=== PATIENT | female | born 2000 | race Caucasian/White ===

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

== ENCOUNTER 2021-07-23 15:03 | Emergency (ER) | payer OTHER ==
[2021-07-23 15:12] VITALS: BMI 35.7
[2021-07-23] MEDS ORDERED: DEXTROSE 5%-LACTATED RINGERS 1,000 ML IV SCH (16:30)
[2021-07-23 16:57] VITALS: BP 112/64; PULSE 103; TEMP 98
[2021-07-23 17:41] LABS: COCAINE, UR NEGATIVE (NEGATIVE); PHENCYCLIDINE,URINE NEGATIVE (NEGATIVE); URINE BARBITURATES NEGATIVE (NEGATIVE)
[2021-07-23 17:42] LABS: METHADONE, UR NEGATIVE (NEGATIVE); OPIATES, URI NEGATIVE (NEGATIVE); URINE AMPHETAMINES NEGATIVE (NEGATIVE); URINE BENZODIAZEPINES NEGATIVE (NEGATIVE)
[2021-07-23 17:44] LABS: BASO % 0.2 % (0-2.0); EOS % 1.4 % (0-4.5); HEMATOCRIT 35.1 % (32.4-45.2); HEMOGLOBIN 11.5 GM/dL (10.7-15.3); MCH 30.9 pg (25.7-33.7); MCHC 32.9 g/dl (32.0-36.0); MEAN PLT VOLUME 9.1 fl (7.5-11.1); MONO % 10.9 % (3.8-10.2); NEUT % 72.5 % (42.8-82.8); PLATELET COUNT 216 10^3/uL (134-434); RBC 3.73 M/mm3 (3.60-5.2); RDW 15.5 % (11.6-15.6); WHITE BLOOD COUNT 5.4 K/mm3 (4.0-10.0)
[2021-07-23 18:26] LABS: BLOOD UREA NITROGEN 11.1 mg/dL (7-18); CALCIUM 8.5 mg/dL (8.5-10.1)
[2021-07-23 18:30] LABS: CREATININE 0.7 mg/dL (0.55-1.3)
[2021-07-23 18:31] LABS: BILIRUBIN,TOTAL 0.2 mg/dL (0.2-1); TOT PROT 6.4 g/dl (6.4-8.2)
[2021-07-23 18:34] LABS: PH,URINE 5.5 (5.0-8.0); URINE APPEARANCE CLOUDY; URINE BILIRUBIN NEGATIVE (NEGATIVE); URINE COLOR YELLOW; URINE GLUCOSE (UA) NEGATIVE (NEGATIVE); URINE KETONE TRACE (NEGATIVE); URINE LEUK ESTERASE NEGATIVE (NEGATIVE); URINE NITRITE NEGATIVE (NEGATIVE); URINE PROTEIN TRACE (NEGATIVE); URINE UROBILINOGEN 0.2 mg/dL (0.2-1.0)
== END 2021-07-23 19:40 | disposition home or self-care (01) ==
LOC: JER 15:03
DX: O21.9 Vomiting of pregnancy, unspecified (principal); O99.612 Diseases of the digestive system complicating pregnancy, second trimester; E66.9 Obesity, unspecified; Z3A.21 21 weeks gestation of pregnancy
CPT/HCPCS: 36415; 76801-TC; 80053; 80307; 81003; 85025; 99284-25; C9803; U0003; U0005

== ENCOUNTER 2021-11-28 07:08 | Inpatient (IN) | payer OTHER ==
[2021-11-28] MEDS ORDERED: AMPICILLIN SODIUM 2 GM VIAL ONE (08:20)
[2021-11-28] MEDS ORDERED: BUTORPHANOL TARTRATE 1 MG/ML VIAL IVPUSH PRN (08:21)
[2021-11-28] MEDS ORDERED: PROMETHAZINE HCL 25 MG/1 ML VIAL IVPB ONE (08:21)
[2021-11-28] MEDS ORDERED: AMPICILLIN - 2 GM in SODIUM CHLORIDE 100 ML IVPB ONE (08:21)
[2021-11-28] MEDS ORDERED: DEXTROSE 5%-LACTATED RINGERS 1,000 ML IV SCH (08:30)
[2021-11-28] MEDS ORDERED: OXYTOCIN 30 UNITS in 0.9% NS 30 UNIT/500 ML INFUS.BAG IVPB SCH (08:30)
[2021-11-28 08:56] VITALS: BMI 40.6
[2021-11-28] MEDS ORDERED: AMPICILLIN SODIUM 1 GM VIAL ONE ×3 (11:56→20:41)
[2021-11-28] MEDS: AMPICILLIN - 1 GM in SODIUM CHLORIDE 100 ML IVPB SCH ×4 (12:00→23:04)
[2021-11-28] MEDS ORDERED: ACETAMINOPHEN 325 MG TABLET (FP) ONE (16:55)
[2021-11-28] MEDS ORDERED: ACETAMINOPHEN 325 MG TABLET (FP) PO ONE (17:00)
[2021-11-28] MEDS ORDERED: BUTORPHANOL TARTRATE 2 MG/ML VIAL ONE (19:53)
[2021-11-28] MEDS ORDERED: PROMETHAZINE HCL 25 MG/1 ML VIAL ONE (19:53)
[2021-11-28] MEDS ORDERED: LIDOCAINE HCL 1% PRESERVATIVE FREE - 30ML VIAL ONE (21:01)
[2021-11-28] MEDS ORDERED: OXYTOCIN 20 UNITS in 0.9% NS 20 UNIT/1,000 ML INFUS.BAG IV ONE (21:01)
[2021-11-28] MEDS ORDERED: ACETAMINOPHEN 325 MG TABLET (FP) PO PRN (21:35)
[2021-11-28] MEDS ORDERED: BENZOCAINE 20% 57 GM BOTTLE TP PRN (21:35)
[2021-11-28] MEDS ORDERED: oxyCODONE HCL 5 MG TABLET PO PRN (21:35)
[2021-11-28] MEDS ORDERED: METHYLERGONOVINE MALEATE 0.2 MG/1 ML AMP IM PRN (21:35)
[2021-11-28] MEDS ORDERED: WITCH HAZEL 50% (TUCKS) 40 PAD/JAR PAD TP PRN (21:35)
[2021-11-28] MEDS ORDERED: BENZOCAINE 28 GM HEMORRHOIDAL OINTMENT TP PRN (21:35)
[2021-11-28] MEDS ORDERED: BISACODYL 10 MG SUPP.RECT RC PRN (21:35)
[2021-11-28] MEDS ORDERED: OXYTOCIN 20 UNITS in 0.9% NS 20 UNIT/1,000 ML INFUS.BAG IV SCH (21:45)
[2021-11-28 22:44] LABS: CORD BASE EXCESS -3.6 mmol/L (0-2); CORD HCO3 23.9 mmHg (20-29); CORD PCO2 53.3 mmHg (30-78); CORD pH 7.269 (7.14-7.44)
[2021-11-28 22:47] LABS: CORD BASE EXCESS -5.1 mmol/L (0-2); CORD HCO3 19.6 mmHg (20-29); CORD PCO2 35.5 mmHg (30-78); CORD pH 7.359 (7.14-7.44)
[2021-11-29] MEDS: IBUPROFEN 600 MG TABLET (FP) PO PRN ×3 (05:36→21:12)
[2021-11-29 08:54] LABS: BASO % 0.4 % (0-2.0); EOS % 0.4 % (0-4.5); HEMATOCRIT 25.5 % (32.4-45.2); HEMOGLOBIN 8.4 GM/dL (10.7-15.3); LYMPH % 17.3 % (8-40); MCH 28.5 pg (25.7-33.7); MCHC 32.7 g/dl (32.0-36.0); MEAN CELL VOLUME 86.9 fl (80-96); MEAN PLT VOLUME 9.4 fl (7.5-11.1); MONO % 9.3 % (3.8-10.2); NEUT % 72.6 % (42.8-82.8); PLATELET COUNT 150 10^3/uL (134-434); RBC 2.94 M/mm3 (3.60-5.2); RDW 16.6 % (11.6-15.6); WHITE BLOOD COUNT 8.7 K/mm3 (4.0-10.0)
[2021-11-29] MEDS ORDERED: SENNOSIDES/DOCUSATE COMBO (SENNA PLUS) TABLET (UD) PO PRN (22:00)
[2021-11-30] MEDS: IBUPROFEN 600 MG TABLET (FP) PO PRN (09:13)
[2021-11-30 09:51] VITALS: BP 119/81; PULSE 57; TEMP 98.1
== END 2021-11-30 13:05 | disposition home or self-care (01) | DRG 560 ==
LOC: JLDR 07:08 → J3W 22:56
PROVIDERS: ADMIT Obstetrics & Gynecology; ATTEND Obstetrics & Gynecology
PROC: 10E0XZZ Delivery of Products of Conception, External Approach (ICD-10-PCS; principal; 2021-11-28)
PROC: 3E033VJ Introduction of Other Hormone into Peripheral Vein, Percutaneous Approach (ICD-10-PCS; 2021-11-28)
PROC: 10907ZC Drainage of Amniotic Fluid, Therapeutic from Products of Conception, Via Natural or Artificial Opening (ICD-10-PCS; 2021-11-28)
DX: O69.81X0 Labor and delivery complicated by cord around neck, without compression, not applicable or unspecified (principal); O99.214 Obesity complicating childbirth; E66.01 Morbid (severe) obesity due to excess calories; Z86.59 Personal history of other mental and behavioral disorders; Z3A.39 39 weeks gestation of pregnancy; Z37.0 Single live birth
CPT/HCPCS: 36415; 36600; 59409; 80053; 82803; 85025; 85610; 85730; 86780; 86850; 86900; 86901; C9803-CS; U0003; U0005

== ENCOUNTER 2023-06-19 17:14 | Emergency (ER) | payer OTHER ==
[2023-06-19 17:56] VITALS: BP 123/77; PULSE 101; RESP 18; TEMP 98.3; BMI 37.9
[2023-06-19] MEDS ORDERED: ACETAMINOPHEN 325 MG TABLET (FP) PO ONE (18:54)
[2023-06-19] MEDS ORDERED: ACETAMINOPHEN 325 MG TABLET (FP) ONE (18:56)
[2023-06-19 19:58] LABS: PH,URINE 6.5 (5.0-8.0); URINE APPEARANCE CLEAR; URINE BILIRUBIN NEGATIVE (NEGATIVE); URINE COLOR YELLOW; URINE GLUCOSE (UA) NEGATIVE (NEGATIVE); URINE KETONE NEGATIVE (NEGATIVE); URINE LEUK ESTERASE NEGATIVE (NEGATIVE); URINE NITRITE NEGATIVE (NEGATIVE); URINE PROTEIN NEGATIVE (NEGATIVE); URINE UROBILINOGEN 0.2 mg/dL (0.2-1.0)
[2023-06-19 20:01] LABS: HCG,QUALITATIVE URINE Negative
[2023-06-19] MEDS ORDERED: DOXYCYCLINE HYCLATE 100 MG CAPSULE PO ONE ×2 (20:02→20:09)
[2023-06-19] MEDS ORDERED: cefTRIAXone SODIUM 1 GM VIAL ONE (20:09)
[2023-06-19 21:07] LABS: HIV INTERPRETATION NEGATIVE (NEGATIVE)
[2023-06-19 21:22] LABS: SYPHILIS W/ RPR CONF REACTIVE (NONREACTIVE)
== END 2023-06-19 20:17 | disposition home or self-care (01) ==
LOC: JERFT 17:14
PROC: 3E023GC Introduction of Other Therapeutic Substance into Muscle, Percutaneous Approach (ICD-10-PCS; principal; 2023-06-19)
DX: M25.562 Pain in left knee (principal); Z11.3 Encounter for screening for infections with a predominantly sexual mode of transmission; W19.XXXA Unspecified fall, initial encounter
CPT/HCPCS: 36415; 81003; 84703; 86593; 86705; 86780; 87086; 87340; 87389; 87491; 87517; 87522; 87591; 99284-25

== ENCOUNTER 2023-07-07 13:51 | Emergency (ER) | payer OTHER ==
[2023-07-07 13:59] VITALS: BP 123/72; PULSE 108; RESP 18; TEMP 98.1; BMI 35.8
[2023-07-07 15:09] LABS: EPI CELLS >36 /uL (0-25.1); HYALINE CASTS 2 /uL (0-3.1); PH,URINE 5.5 (5.0-8.0); URINE APPEARANCE TURBID; URINE BACTERIA 1872 /uL (0-1359); URINE BILIRUBIN NEGATIVE (NEGATIVE); URINE COLOR YELLOW; URINE GLUCOSE (UA) NEGATIVE (NEGATIVE); URINE KETONE NEGATIVE (NEGATIVE); URINE LEUK ESTERASE 2+ (NEGATIVE); URINE NITRITE NEGATIVE (NEGATIVE); URINE PROTEIN NEGATIVE (NEGATIVE); URINE UROBILINOGEN 0.2 mg/dL (0.2-1.0); URINE WBC 297 /uL (0-25.8)
[2023-07-07 15:10] LABS: HCG,QUALITATIVE URINE Negative
[2023-07-07] MEDS ORDERED: IBUPROFEN 400 MG TABLET (FP) PO ONE ×2 (15:12→15:20)
[2023-07-07 15:26] LABS: URINE RBC 69.4 /uL (0-23.9); YEAST FEW (NEGATIVE)
[2023-07-07] MEDS ORDERED: FLUCONAZOLE 50 MG TABLET PO ONE (16:13)
[2023-07-07] MEDS ORDERED: FLUCONAZOLE 150 MG TABLET PO ONE (16:16)
[2023-07-07] MEDS ORDERED: CEFTRIAXONE 1,000 MG in DEXTROSE 5%-WATER - 50 ML IVPB ONE (16:45)
== END 2023-07-07 17:51 | disposition left against medical advice (07) ==
LOC: JERFT 13:51
PROC: 3E023GC Introduction of Other Therapeutic Substance into Muscle, Percutaneous Approach (ICD-10-PCS; principal; 2023-07-07)
DX: M54.50 Low back pain, unspecified (principal); R30.0 Dysuria; N89.8 Other specified noninflammatory disorders of vagina; B37.31 Acute candidiasis of vulva and vagina
CPT/HCPCS: 36415; 81003; 84703; 87070; 87077; 87086; 87205; 87491; 87591; 87661; 99284-25

== ENCOUNTER 2023-07-19 15:46 | Emergency (ER) | payer OTHER ==
[2023-07-19 16:04] VITALS: BP 113/72; PULSE 95; RESP 19; TEMP 99; BMI 38.2
[2023-07-19 18:06] LABS: EPI CELLS >36 /uL (0-25.1); HYALINE CASTS 0 /uL (0-3.1); URINE APPEARANCE CLEAR; URINE BACTERIA 586 /uL (0-1359); URINE BILIRUBIN NEGATIVE (NEGATIVE); URINE COLOR YELLOW; URINE GLUCOSE (UA) NEGATIVE (NEGATIVE); URINE KETONE NEGATIVE (NEGATIVE); URINE LEUK ESTERASE TRACE (NEGATIVE); URINE NITRITE NEGATIVE (NEGATIVE); URINE PROTEIN NEGATIVE (NEGATIVE); URINE RBC 7 /uL (0-23.9); URINE UROBILINOGEN 0.2 mg/dL (0.2-1.0); URINE WBC 52 /uL (0-25.8)
[2023-07-19] MEDS ORDERED: cefTRIAXone SODIUM 1 GM VIAL ONE (19:06)
== END 2023-07-19 19:21 | disposition home or self-care (01) ==
LOC: JERFT 15:46 → JER 15:46
DX: R19.7 Diarrhea, unspecified (principal)
CPT/HCPCS: 81003; 84703; 87086; 99284-25